=== PATIENT | male | born 1960 | race Caucasian/White ===

== ENCOUNTER → 2018-08-06 | Outpatient (CLI) | payer OTHER ==
[~2018-08-06] MED LIST: AMLODIPINE; LOSARTAN
--- NOTE | 2018-08-06 18:48 | CONS ---
Assessment/Plan Assessment/Plan Hospital Course (Demo Recall) This is a 58-year-old male with severe osteoarthritis of his left hip with mild protrusio. X-rays and MRI show very cystic femoral head. Patient is failing conservative treatment including NSAIDs, activity modification, and pain medication. At this time I am recommending a left total hip arthroplasty. He would like to proceed with scheduling. Plan: Preop medical clearance Schedule for left total hip arthroplasty Follow-up for preop appointment Will need templated AP pelvis and AP lateral left hip Consultation Date/Type/Reason Admit Date/Time Date of Consultation: August 06, 2018 Reason for Consultation Left hip pain Date/Time of Note DATE: 08/06/18 TIME: 18:39 Hx of Present Illness This is a 58-year-old male who presents with a history of left hip pain. Patient states the pain is in the groin, but at times also posterior and radiates down his thigh to his knee. The pain is primarily weight bearing and does not radiate. It is described as sharp, throbbing and burning. The pain is rated as a 6/10 with activity and to/10 at rest. Walking tolerance is 3-4 blocks with pain. No external support. The patient does admit to a limp. Navigates stairs with use of the banister. Has some difficulty with shoes and socks. No history of childhood or adolescent hip disease. No risk factors for avascular necrosis. There are mild symptoms to suggest referred pain from the back with radicular symptoms. Treatment to date has included oral anti-inflammatories, activity modification. The patient states that treatment to date has not provided adequate relief of symptoms, prompting consultation regarding operative and nonoperative treatment for left hip pain. He has also been told he has arthritis in the right hip, but has no pain or symptoms. Duration: One year Injury: No Walking tolerance: 34 blocks with pain Limp: Yes Support: None Stairs: Uses banister Physical Therapy: No Injections: No NSAID's: Yes Prior surgery: No Back pain: Yes Knee pain: No Risk of AVN : no Patient denies fever, chills, shortness of breath, chest pain, nausea/vomiting, constipation, diarrhea, numbness, and tingling. Past Medical History Hypertension BPH Osteoarthritis Melanoma Squamous cell carcinoma Home Meds Reported Medications [Amlodipine] No Conflict Check 01/24/16 [Losartan] No Conflict Check 01/24/16 Allergies: Coded Allergies: No Known Allergy (Unverified , 01/24/16) Past Surgical History Excision of skin cancer Appendectomy Family History Significant Family History: no pertinent family hx Social History Alcohol Use: rarely Smoking Status: Never smoker Drug Use: none Exam/Review of Systems Exam Vitals Weight: 250 pounds Height: 6 foot BMI: 33.9 Temperature: 90.5 Heart Rate: 80 Blood Pressure: 133/78 Respiratory Rate: 12 Exam General: Awake, alert, in no acute distress, pleasant and cooperative Heart: regular rhythm Lungs: breathing comfortably, no tachypnea or dyspnea Musculoskeletal: Well developed male in no apparent distress. Gait demonstrates a mild Trendelenburg with antalgic components and a short leg component. Standing, the pelvis is level and supine there is no significant true leg length discrepancy, with the left leg slightly shorter. There is tenderness over trochanteric bursa or IT band. ----- Range of motion: Flexion: 100 Extension: 0 Internal rotation: 0 External rotation: 30 Abduction: 30 Adduction: Midline ----- Sitting there is no pelvic obliquity. Pain at the extremes of motion of the affected hip. Skin was intact throughout both lower extremities. Sensation intact to light touch in a sural, saphenous, deep peroneal, superficial peroneal, medial and lateral plantar nerve distribution. 4/5 strength for hip abductors. Neurovascular exam showed 5/5 strength in the quads, EHL/tibialis anterior/gastroc. Normal and symmetrical pulses were palpated in both the dorsalis pedis and posterior tibial arteries. There is no sign of venous stasis. Imaging Imaging The patient received a full set of films and personally reviewed by myself today in clinic including an AP pelvis and an AP and lateral of the affected hip. The hip is reduced. Bilateral mild hip protrusio worse in the left and right. There is significant loss of joint space. There is osteophyte formation. There is subchondral sclerosis. There are numerous large subchondral cysts. There is no significant deformity of the the proximal femur, femoral neck, or acetabulum. The pelvis is in continuity. Bone quality radiographically: Good MRI of the left hip was personally reviewed. Moderate severe osteoarthritis of the left femoral acetabular joint with femoral acetabular impingement. There is diffuse subchondral cyst formation. There are areas of full-thickness chondral loss. There is osteophyte formation. CIRO ROCHA MD August 06, 2018 18:48
--- NOTE | 2018-08-07 09:13 | RADRPT ---
PROCEDURE: AP pelvis and bilateral hip series CLINICAL INDICATION: Pain TECHNIQUE: AP pelvic weight bearing and AP and frog lateral weight bearing views of the of the righ t left hips were performed. COMPARISON: None. FINDINGS: Mild to moderate degenerative joint disease of both hips. No evidence of acute fractures or dislocati ons. The bony mineralization is normal. No focal bony blastic or lytic lesions. Soft tissues are unre markable. IMPRESSION: 1. Mild to moderate degenerative joint disease of both hips without acute fractures or dislocations. RPTAT:AAJJ Physician Gilbert Date Time Electronically viewed and signed by Physician Gilbert on 08/07/2018 09:13 BM/
== END | disposition home or self-care (01) ==
LOC: HKI 10:22
PROVIDERS: ATTEND Orthopaedic Surgery Adult Reconstructive Orthopaedic Surgery
DX: Z01.818 Encounter for other preprocedural examination (principal); M16.12 Unilateral primary osteoarthritis, left hip
CPT/HCPCS: 73523; G0463

== ENCOUNTER 2018-09-23 05:38 | Inpatient (IN) | payer OTHER ==
[2018-09-22 13:59] VITALS: BMI 34.2
[2018-09-23] VITALS (42 sets, daily range): BP systolic 71–140; BP diastolic 39–88; PULSE 60–97; RESP 12–28; Ht 182.9 cm; Wt 114.7 kg
[~2018-09-23] VITALS: Ht 182.9 cm; Wt 114.7 kg
[~2018-09-23 05:38] MED LIST changes: -AMLODIPINE; +AMLODIPINE PO; -LOSARTAN; +LOSARTAN PO
[2018-09-23] MEDS ORDERED: LACTATED RINGER'S 1,000 ML IV SCH ×2 (06:00→11:33)
[2018-09-23] MEDS ORDERED: ACETAMINOPHEN 500 MG TAB PO ONE (06:00)
[2018-09-23] MEDS ORDERED: DEXAMETHASONE 4 MG/ML 1 ML INJ IV ONE (06:00)
[2018-09-23] MEDS ORDERED: ONDANSETRON 4 MG INJ IV ONE (06:00)
[2018-09-23] MEDS ORDERED: GABAPENTIN 300 MG CAP PO ONE (06:00)
[2018-09-23] MEDS ORDERED: AMLO-147 PO (06:54)
[2018-09-23] MEDS ORDERED: LOSA100T15 PO (06:55)
[2018-09-23] MEDS ORDERED: CELECOXIB 200 MG CAP PO ONE (07:00)
[2018-09-23] MEDS ORDERED: LANSOPRAZOLE 30 MG CAP PO ONE (07:00)
[2018-09-23] MEDS ORDERED: ACETAMINOPHEN 1000MG/100ML IV 100 ML IVPB ONE ×2 (07:00→10:00)
--- NOTE | 2018-09-23 07:20 | PREAC ---
Date/Time of Note Date/Time of Note DATE: 09/23/18 TIME: 07:18 Anesthesia Eval and Record Evaluation Time Pre-Procedure Interview DATE: 09/23/18 TIME: 07:18 Age 58 Sex male NPO: 8 hrs Preoperative diagnosis left hip osteoarthritis Planned procedure left total hip replacement Past Medical History Past Medical History: Includes Cardio: HTN Endo: Diabetes GI: Obesity Surgery & Anesthesia Issues No known issue Meds Anticoagulation: No Beta Alvina within 24 hr: No Reason Beta Alvina not given: Pt. not on B-Alvina Reported Medications Losartan Potassium* (Losartan Potassium*) 100 Mg Tablet, 100 MG PO DAILY, TAB 09/23/18 Amlodipine Besylate* (Amlodipine Besylate*) 10 Mg Tablet, 10 MG PO DAILY, #30 TAB 09/23/18 Discontinued Reported Medications [Amlodipine] No Conflict Check, 10 MG PO DAILY 01/24/16 [Losartan] 100 No Conflict Check, 100 MG PO DAILY 01/24/16 Current Medications Lactated Ringer's 1,000 ml @ 125 mls/hr Q8H IV Last administered on 09/23/18at 06:44; Admin Dose 125 MLS/HR; Start 09/23/18 at 06:00; Stop 09/23/18 at 13:59 Cefazolin Sodium/ Dextrose 50 ml @ 100 mls/hr PRE-OP ONCE IVPB ; Start 09/23/18 at 10:00; Stop 09/23/18 at 10:29 Ropivacaine/ Clonidine/ Epinephrine/ Ketorolac Tromethamine/ Sodium Chloride INTRA-OP INJ ; Start 09/23/18 at 14:00 Meds reviewed: Yes Allergies Coded Allergies: No Known Allergy (Unverified , 09/23/18) Allergies Reviewed: Yes Labs/Studies Labs Reviewed: Reviewed by anesthesiologist test: N/A Studies: ECG, CXR Pre-procedure Exam Last vitals Vital Signs Date Temp Pulse Resp B/P (MAP) Pulse Ox O2 O2 Flow FiO2 Time Delivery Rate 09/23/18 99.4 89 18 140/88 96 07:03 (105) Airway: Adequate mouth opening, Adequate thyromental dist Mallampati: Mallampati II Teeth: Normal Lung: Normal Heart: Normal ASA Physical Status ASA physical status: 2 Emergency: None Planned Anesthetic General/MAC: ETT Neuraxial: Spinal Planned Pain Management Single shot nerve block, Parenteral pain med Pre-operative Attestations Prior to commencing anesthesia and surgery, the patient was re-evaluated, there was verification of: *The patient's identity *The results of appropriate recent lab work and preoperative vital signs *The above evaluation not changing prior to induction *Anesthetic plan, risk benefits, alternative and complications discussed with patient/family; questions answered; patient/family understands, accepts and wishes to proceed. TEGAN SMITH Sep 23, 2018 07:20
--- NOTE | 2018-09-23 07:23 | HPN ---
Date/Time of Note Date/Time of Note DATE: 09/23/18 TIME: 07:22 Interval H&P Admission Note Pt. seen H&P reviewed: No system changes Patient denies fever, chills, shortness of breath, chest pain, nausea/vomiting, constipation, diarrhea, numbness, and tingling. MUSCULOSKELETAL: Left lower extremity extremity Skin intact Sensation intact to light touch in a sural, saphenous, deep peroneal, superficial peroneal, medial and lateral plantar nerve distribution. Motor is intact, patient able to dorsiflex and plantarflex ankle and extend and flex great toe. Dorsalis Pedis pulse +2, Brisk capillary refill. Compartments are soft. Calves non-tender to palpation bilaterally. CIRO ROCHA MD Sep 23, 2018 07:23
[2018-09-23] MEDS ORDERED: SEVOFLURANE 15 MIN ONE (07:30)
[2018-09-23] MEDS ORDERED: EPINEPHrine 1 MG INJ ONE (07:32)
[2018-09-23] MEDS ORDERED: MIDAZOLAM 1 MG/ML 2 ML INJ ONE (07:34)
[2018-09-23] MEDS ORDERED: FENTAnyl 50 MCG/ML VIAL ONE (07:34)
[2018-09-23] MEDS ORDERED: CEFAZOLIN 1 GM INJ ONE (09:14)
[2018-09-23] MEDS ORDERED: PROPOFOL 20 ML ONE (09:14)
[2018-09-23] MEDS ORDERED: LIDOCAINE 2% (SDV) 5 ML INJ ONE (09:14)
[2018-09-23] MEDS ORDERED: ROCURONIUM 50 MG INJ ONE (09:14)
[2018-09-23] MEDS ORDERED: DEXAMETHASONE 4 MG/ML 5 ML INJ ONE (09:14)
[2018-09-23] MEDS ORDERED: CEFAZOLIN 2 GM/50 ML (PMX) 50 ML IVPB ONE (10:00)
[2018-09-23] MEDS ORDERED: NEOSTIGMINE 3 MG/3 ML SYRINGE ONE (11:07)
[2018-09-23] MEDS ORDERED: GLYCOPYRROLATE 0.4 MG INJ ONE (11:07)
[2018-09-23] MEDS ORDERED: ONDANSETRON 4 MG INJ ONE (11:09)
--- NOTE | 2018-09-23 11:38 | PAC ---
Date/Time of Note Date/Time of Note DATE: 09/23/18 TIME: 11:37 Post-Anesthesia Notes Post-Anesthesia Note Last documented vital signs Vital Signs Date Temp Pulse Resp B/P (MAP) Pulse Ox O2 O2 Flow FiO2 Time Delivery Rate 09/23/18 99.4 89 18 140/88 96 1138 (105) Activity: WNL Respiratory function: WNL Cardiovascular function: WNL Mental status: Baseline Pain reasonably controlled: Yes Hydration appropriate: Yes Nausea/Vomiting absent: Yes TEGAN SMITH Sep 23, 2018 11:38
[2018-09-23] MEDS ORDERED: MIDAZOLAM 1 MG/ML 2 ML INJ IV PRN (12:00)
[2018-09-23] MEDS ORDERED: NALOXONE (0.4 MG/ML) INJ IV PRN (12:00)
[2018-09-23] MEDS ORDERED: ALBUTEROL 0.083% (NEB) 2.5 MG/3 ML AMP HHN PRN (12:00)
[2018-09-23] MEDS ORDERED: KETOROLAC 15 MG INJ IV PRN (12:00)
[2018-09-23] MEDS ORDERED: NACL 0.9% 3 ML SYG IV SCH (12:00)
[2018-09-23] MEDS ORDERED: METOCLOPRAMIDE 10 MG INJ IV PRN (12:00)
[2018-09-23] MEDS ORDERED: SENNA/DOCUSATE NA (8.6MG/50MG) TAB PO PRN (12:00)
[2018-09-23] MEDS ORDERED: NA PHOSPHATE/BIPHOS 133 ML ENEMA PR PRN (12:00)
[2018-09-23] MEDS ORDERED: BISACODYL 10 MG SUPP PR PRN (12:00)
[2018-09-23] MEDS ORDERED: LABETALOL HCL 20MG INJ IV PRN (12:00)
[2018-09-23] MEDS ORDERED: DIPHENHYDRAMINE 50 MG INJ IV PRN ×2 (12:00)
[2018-09-23] MEDS ORDERED: MAGNESIUM HYDROXIDE 30ML CUP PO PRN (12:00)
[2018-09-23] MEDS ORDERED: HYDROmorphONE 1 MG/5 ML IV SYRINGE IV PRN ×2 (12:00)
[2018-09-23] MEDS ORDERED: HYDROmorphONE 1 MG/ML SYG IV PRN (12:00)
[2018-09-23] MEDS ORDERED: oxyCODONE 5 MG TAB PO PRN ×2 (12:00)
[2018-09-23] MEDS ORDERED: FENTAnyl 50 MCG/ML VIAL IV PRN ×3 (12:00)
[2018-09-23] MEDS ORDERED: BETHANECHOL 25 MG TAB PO PRN (12:00)
[2018-09-23] MEDS ORDERED: DOCUSATE SODIUM 100 MG CAP PO ONE (12:00)
[2018-09-23] MEDS ORDERED: KETOROLAC 30 MG INJ IV PRN (12:00)
[2018-09-23] MEDS ORDERED: hydrALAzine 20 MG INJ IV PRN (12:00)
[2018-09-23] MEDS ORDERED: MEPERIDINE 25 MG INJ IV PRN (12:00)
[2018-09-23] MEDS ORDERED: ONDANSETRON 4 MG INJ IV PRN (12:00)
[2018-09-23] MEDS ORDERED: EPHEDrine 25 MG/5 ML SYG IV PRN (12:00)
[2018-09-23] MEDS: CEFAZOLIN 2 GM/50 ML (PMX) 50 ML IVPB SCH ×2 (12:26→21:21)
[2018-09-23] MEDS ORDERED: DEXTROSE 50% 50 ML SYRINGE IV PRN ×2 (12:30)
[2018-09-23] MEDS ORDERED: GLUCOSE GEL 15 GRAM TUBE BUCCAL PRN (12:30)
[2018-09-23] MEDS ORDERED: GLUCAGON 1 MG INJ IM PRN (12:30)
[2018-09-23] MEDS ORDERED: GLUCOSE GEL 15 GRAM TUBE PO PRN ×2 (12:30)
[2018-09-23] MEDS: HYDROmorphONE 1 MG/5 ML IV SYRINGE IV PRN ×2 (12:54→13:02)
[2018-09-23] MEDS: ACETAMINOPHEN 500 MG TAB PO SCH ×2 (13:48→21:20)
--- NOTE | 2018-09-23 14:34 | CONS ---
Assessment/Plan Assessment/Plan Hospital Course (Demo Recall) SUBJECTIVE: POD #0. No acute distress. OBJECTIVE: Vital signs-see below PHYSICAL EXAM: Constitutional: Adequately built,not in acute distress. HEENT: Head atraumatic and normocephalic. Eyes: Extraocular muscles intact. Anicteric sclerae. Pupils equal bilaterally, reactive to light. NECK: Supple without lymph node. CHEST: Clear and good breath sounds equally. No wheezing. No rhonchi. HEART: S1, S2. Regular rate and rhythm. ABDOMEN: Soft/non tender with no rebound tenderness. Bowel sounds were present. EXTREMITIES: Left hip bandaged. No oozing noted outside. No cyanosis, clubbing or edema. NEUROLOGIC: Alert and oriented x3. No focal deficit. No sensory deficit. PSYCHOSOCIAL: No signs of depression. INTEGUMENTARY: No open wounds. ASSESSMENT AND PLAN:58 yo M w/dm2,htn,dlp hip OA admitted s/p L total hip replacement sx.. L Hip osteoarthritis and protrusio -s/p L total hip replacement 09/23 -dvt ppx,pain control, wt bearing per ortho team ? New onset DMII -A1C 7.0 reportedly which we will repeat. -DC LR and give NS postoperatively -basal/bolus insulin HTN -stable,slightly borderline low -monitor and resume antihypertensive in AM w/parameters ?Dyslipidemia -pt was advised to start statin therapy after surgery -obtain a Lipid panel Obesity w/bmi 34.3 -weight reduction advised -add am lipid panel dvt ppx;asa bid (per ortho) Thank you for allowing us to partake in the care of this gentleman. Approximately 60 m spent on this consultation. Patient was seen in collaboration with Dr. Mehta. Consultation Date/Type/Reason Admit Date/Time Sep 23, 2018 at 05:38 Date of Consultation: Sep 23, 2018 Type of Consult Internal medicine/hospitalist medicine Reason for Consultation co-medical mgmt Requesting Provider: CIRO ROCHA MD Date/Time of Note DATE: 09/23/18 TIME: 14:28 Hx of Present Illness This is a 58-year-old obese male with a history of hypertension, type 2 diabetes, left hip osteoarthritis with protrusio, admitted for elective left total hip replacement. Patient underwent left total hip replacement surgery on 09/23/2018. EBL 300ML. Hospitalist consultation was requested postoperatively for co-medical management. At my encounter with the patient, he denies any chest pain, palpitation, shortness of breath, nausea, vomiting, abdominal pain, loss of consciousness, dizziness, numbness, tingling, fever, chills or other constitutional symptoms. Currently no labs for review. Vital signs stable. Latest POC glucose 699. A 12 point review of system was assessed and is negative other than what is mentioned in the HPI. Past Medical History See HPI Home Meds Reported Medications Losartan Potassium* (Losartan Potassium*) 100 Mg Tablet, 100 MG PO DAILY, TAB 09/23/18 Amlodipine Besylate* (Amlodipine Besylate*) 10 Mg Tablet, 10 MG PO DAILY, #30 TAB 09/23/18 Discontinued Reported Medications [Amlodipine] No Conflict Check, 10 MG PO DAILY 01/24/16 [Losartan] 100 No Conflict Check, 100 MG PO DAILY 01/24/16 Medications Current Medications Lactated Ringer's 1,000 ml @ 80 mls/hr [id number] IV Last administered on 09/23/18at 12:26; Admin Dose 80 MLS/HR; Start 09/23/18 at 11:33 Oxycodone HCl (Roxicodone) 15 mg Q4H PRN PO .PAIN; Start 09/23/18 at 12:00 Oxycodone HCl (Roxicodone) 10 mg Q4H PRN PO .PAIN; Start 09/23/18 at 12:00 Oxycodone HCl (Roxicodone) 5 mg Q4H PRN PO .PAIN; Start 09/23/18 at 12:00 Hydromorphone HCl (Dilaudid) 1 mg Q3H PRN IV .BREAKTHROUGH PAIN; Start 09/23/18 at 12:00 Acetaminophen (Tylenol Tab) 1,000 mg Q8 PO Last administered on 09/23/18at 13:48; Admin Dose 1,000 MG; Start 09/23/18 at 14:00 Ondansetron HCl (Zofran Inj) 4 mg Q4H PRN IV NAUSEA/VOMITING; Start 09/24/18 at 12:00 Cefazolin Sodium/ Dextrose 50 ml @ 100 mls/hr Q8H IVPB Last administered on 09/23/18at 12:26; Admin Dose 100 MLS/HR; Start 09/23/18 at 12:00; Stop 09/24/18 at 04:29 Gabapentin (Neurontin) 300 mg QHS PO ; Start 09/23/18 at 21:00 Pantoprazole (Protonix Tab) 40 mg DAILY@06 PO ; Start 09/24/18 at 06:00 Docusate Sodium (Colace) 200 mg BID PO ; Start 09/24/18 at 09:00; Stop 09/26/18 at 21:01 Simethicone (Mylicon) 80 mg TID PRN PO .GAS; Start 09/23/18 at 12:00 Senna/Docusate Sodium (Senokot-S) 2 tab BID PRN PO .CONSTIPATION; Start 09/23/18 at 12:00 Magnesium Hydroxide (Milk Of Mag) 30 ml HS PRN PO .CONSTIPATION; Start 09/23/18 at 12:00 Bisacodyl (Dulcolax Supp) 10 mg DAILY PRN SD .CONSTIPATION; Start 09/23/18 at 12:00 Sodium Biphosphate/ Sodium Phosphate (Fleet Enema) 133 ml DAILY PRN SD .CONSTIPATION; Start 09/23/18 at 12:00 Diphenhydramine HCl (Benadryl) 25 mg Q4H PRN IV .ITCHING; Start 09/23/18 at 12:00 Ketorolac Tromethamine (Toradol) 15 mg Q6H PRN IV .PAIN Last administered on 09/23/18at 13:49; Admin Dose 15 MG; Start 09/23/18 at 12:00 Naloxone HCl (Narcan) 0.2 mg Q2M PRN IV .RESP RATE; Start 09/23/18 at 12:00 IV Flush (NS 3 ml) 3 ml per protocol IV ; Start 09/23/18 at 12:00 Bethanechol Chloride (Urecholine) 25 mg URINARY CATH D/C PRN PO UNABLE TO VOID; Start 09/23/18 at 12:00 Aspirin (Halfprin) 81 mg BID PO ; Start 09/24/18 at 09:00 Hydromorphone HCl (Dilaudid) 0.2 mg PACU PRN IV MILD PAIN 1-3 Last administered on 09/23/18at 13:07; Admin Dose 0.2 MG; Start 09/23/18 at 12:00; Stop 09/23/18 at 18:00 Hydromorphone HCl (Dilaudid) 0.4 mg PACU PRN IV MOD PAIN 4-6 Last administered on 09/23/18at 13:02; Admin Dose 0.4 MG; Start 09/23/18 at 12:00; Stop 09/23/18 at 18:00 Hydromorphone HCl (Dilaudid) 0.6 mg PACU PRN IV SEVERE PAIN 7-10; Start 09/23/18 at 12:00; Stop 09/23/18 at 18:00 Fentanyl (Sublimaze) 25 mcg PACU ORDER PRN IV MILD PAIN 1-3; Start 09/23/18 at 12:00; Stop 09/23/18 at 18:00 Fentanyl (Sublimaze) 50 mcg PACU ORDER PRN IV MOD PAIN 4-6; Start 09/23/18 at 12:00; Stop 09/23/18 at 18:00 Fentanyl (Sublimaze) 75 mcg PACU ORDER PRN IV SEVERE PAIN 7-10; Start 09/23/18 at 12:00 Ketorolac Tromethamine (Toradol) 30 mg PACU ORDER PRN IV FOR PAIN AFTER IV NARCOTIC MED; Start 09/23/18 at 12:00; Stop 09/23/18 at 18:00 Ondansetron HCl (Zofran Inj) 4 mg PACU ORDER PRN IV NAUSEA/VOMITING; Start 09/23/18 at 12:00; Stop 09/23/18 at 18:00 Metoclopramide HCl (Reglan) 10 mg PACU ORDER PRN IV NAUSEA/VOMITING; Start 09/23/18 at 12:00; Stop 09/23/18 at 18:00 Labetalol HCl (Labetalol) 5 mg PACU ORDER PRN IV HIGH BLOOD PRESSURE; Start 09/23/18 at 12:00; Stop 09/23/18 at 18:00 Hydralazine HCl (Apresoline) 5 mg PACU ORDER PRN IV HIGH BLOOD PRESSURE; Start 09/23/18 at 12:00; Stop 09/23/18 at 18:00 Ephedrine Sulfate 5 mg PACU ORDER PRN IV BLOOD PRESSURE SUPPORT; Start 09/23/18 at 12:00; Stop 09/23/18 at 18:00 Albuterol (Proventil 0.083% (Neb)) 2.5 mg PACU ORDER PRN HHN .WHEEZING; Start 09/23/18 at 12:00; Stop 09/23/18 at 18:00 Meperidine HCl (Demerol) 25 mg PACU ORDER PRN IV .RIGORS; Start 09/23/18 at 12:00; Stop 09/23/18 at 18:00 Diphenhydramine HCl (Benadryl) 25 mg PACU ORDER PRN IV .PRURITUS; Start 09/23/18 at 12:00; Stop 09/23/18 at 18:00 Midazolam HCl (Versed) 0.5 mg PACU ORDER PRN IV .ANXIETY; Start 09/23/18 at 12:00; Stop 09/23/18 at 18:00 Amlodipine Besylate (Norvasc) 10 mg DAILY PO ; Start 09/24/18 at 09:00 Losartan Potassium (Cozaar) 100 mg DAILY PO ; Start 09/24/18 at 09:00 Diagnostic Test (Pha) (Accu-Chek) 1 ea 02 XX ; Start 09/24/18 at 02:00 Insulin Glargine (Lantus) 17 units DAILY@2000 SC ; Start 09/23/18 at 20:00 Insulin Aspart (Novolog Insulin Pen) 6 unit WITH MEALS SC ; Start 09/23/18 at 17:55 Insulin Aspart (Novolog Insulin Pen) NOVOLOG *MILD* ALGORITHM WITH MEALS BEDTIME SC ; Start 09/23/18 at 17:55 Miscellaneous Information 1 ea NOTE XX ; Start 09/23/18 at 12:30 Glucose (Glutose) 15 gm Q15M PRN PO DECREASED GLUCOSE; Start 09/23/18 at 12:30 Glucose (Glutose) 22.5 gm Q15M PRN PO DECREASED GLUCOSE; Start 09/23/18 at 12:30 Dextrose (D50w Syringe) 25 ml Q15M PRN IV DECREASED GLUCOSE; Start 09/23/18 at 12:30 Dextrose (D50w Syringe) 50 ml Q15M PRN IV DECREASED GLUCOSE; Start 09/23/18 at 12:30 Glucagon (Glucagen) 1 mg Q15M PRN IM DECREASED GLUCOSE; Start 09/23/18 at 12:30 Glucose (Glutose) 15 gm Q15M PRN BUCCAL DECREASED GLUCOSE; Start 09/23/18 at 12:30 Allergies: Coded Allergies: No Known Allergy (Unverified , 09/23/18) Past Surgical History See HPI Social History Patient denied history of alcohol, smoking or illicit drug use. Smoking Status: Never smoker Exam/Review of Systems Exam Vitals Vital Signs Date Temp Pulse Resp B/P (MAP) Pulse Ox O2 O2 Flow FiO2 Time Delivery Rate 09/23/18 98.0 13:30 09/23/18 84 17 104/70 95 Nasal 13:19 (81) Cannula 09/23/18 2.0 12:39 Results Results 24hrs Laboratory Tests Test 09/23/18 06:21 09/23/18 11:51 Bedside Glucose 134 199 Medications Medication Current Medications Lactated Ringer's 1,000 ml @ 80 mls/hr [id number] IV Last administered on 09/23/18at 12:26; Admin Dose 80 MLS/HR; Start 09/23/18 at 11:33 Oxycodone HCl (Roxicodone) 15 mg Q4H PRN PO .PAIN; Start 09/23/18 at 12:00 Oxycodone HCl (Roxicodone) 10 mg Q4H PRN PO .PAIN; Start 09/23/18 at 12:00 Oxycodone HCl (Roxicodone) 5 mg Q4H PRN PO .PAIN; Start 09/23/18 at 12:00 Hydromorphone HCl (Dilaudid) 1 mg Q3H PRN IV .BREAKTHROUGH PAIN; Start 09/23/18 at 12:00 Acetaminophen (Tylenol Tab) 1,000 mg Q8 PO Last administered on 09/23/18at 13:48; Admin Dose 1,000 MG; Start 09/23/18 at 14:00 Ondansetron HCl (Zofran Inj) 4 mg Q4H PRN IV NAUSEA/VOMITING; Start 09/24/18 at 12:00 Cefazolin Sodium/ Dextrose 50 ml @ 100 mls/hr Q8H IVPB Last administered on 09/23/18at 12:26; Admin Dose 100 MLS/HR; Start 09/23/18 at 12:00; Stop 09/24/18 at 04:29 Gabapentin (Neurontin) 300 mg QHS PO ; Start 09/23/18 at 21:00 Pantoprazole (Protonix Tab) 40 mg DAILY@06 PO ; Start 09/24/18 at 06:00 Docusate Sodium (Colace) 200 mg BID PO ; Start 09/24/18 at 09:00; Stop 09/26/18 at 21:01 Simethicone (Mylicon) 80 mg TID PRN PO .GAS; Start 09/23/18 at 12:00 Senna/Docusate Sodium (Senokot-S) 2 tab BID PRN PO .CONSTIPATION; Start 09/23/18 at 12:00 Magnesium Hydroxide (Milk Of Mag) 30 ml HS PRN PO .CONSTIPATION; Start 09/23/18 at 12:00 Bisacodyl (Dulcolax Supp) 10 mg DAILY PRN SD .CONSTIPATION; Start 09/23/18 at 12:00 Sodium Biphosphate/ Sodium Phosphate (Fleet Enema) 133 ml DAILY PRN SD .CONSTIPATION; Start 09/23/18 at 12:00 Diphenhydramine HCl (Benadryl) 25 mg Q4H PRN IV .ITCHING; Start 09/23/18 at 12:00 Ketorolac Tromethamine (Toradol) 15 mg Q6H PRN IV .PAIN Last administered on 09/23/18at 13:49; Admin Dose 15 MG; Start 09/23/18 at 12:00 Naloxone HCl (Narcan) 0.2 mg Q2M PRN IV .RESP RATE; Start 09/23/18 at 12:00 IV Flush (NS 3 ml) 3 ml per protocol IV ; Start 09/23/18 at 12:00 Bethanechol Chloride (Urecholine) 25 mg URINARY CATH D/C PRN PO UNABLE TO VOID; Start 09/23/18 at 12:00 Aspirin (Halfprin) 81 mg BID PO ; Start 09/24/18 at 09:00 Hydromorphone HCl (Dilaudid) 0.2 mg PACU PRN IV MILD PAIN 1-3 Last administered on 09/23/18at 13:07; Admin Dose 0.2 MG; Start 09/23/18 at 12:00; Stop 09/23/18 at 18:00 Hydromorphone HCl (Dilaudid) 0.4 mg PACU PRN IV MOD PAIN 4-6 Last administered on 09/23/18at 13:02; Admin Dose 0.4 MG; Start 09/23/18 at 12:00; Stop 09/23/18 at 18 :00 Hydromorphone HCl (Dilaudid) 0.6 mg PACU PRN IV SEVERE PAIN 7-10; Start 09/23/18 at 12:00; Stop 09/23/18 at 18:00 Fentanyl (Sublimaze) 25 mcg PACU ORDER PRN IV MILD PAIN 1-3; Start 09/23/18 at 12:00; Stop 09/23/18 at 18:00 Fentanyl (Sublimaze) 50 mcg PACU ORDER PRN IV MOD PAIN 4-6; Start 09/23/18 at 12:00; Stop 09/23/18 at 18:00 Fentanyl (Sublimaze) 75 mcg PACU ORDER PRN IV SEVERE PAIN 7-10; Start 09/23/18 at 12:00 Ketorolac Tromethamine (Toradol) 30 mg PACU ORDER PRN IV FOR PAIN AFTER IV NARCOTIC MED; Start 09/23/18 at 12:00; Stop 09/23/18 at 18:00 Ondansetron HCl (Zofran Inj) 4 mg PACU ORDER PRN IV NAUSEA/VOMITING; Start 09/23/18 at 12:00; Stop 09/23/18 at 18:00 Metoclopramide HCl (Reglan) 10 mg PACU ORDER PRN IV NAUSEA/VOMITING; Start 09/23/18 at 12:00; Stop 09/23/18 at 18:00 Labetalol HCl (Labetalol) 5 mg PACU ORDER PRN IV HIGH BLOOD PRESSURE; Start 09/23/18 at 12:00; Stop 09/23/18 at 18:00 Hydralazine HCl (Apresoline) 5 mg PACU ORDER PRN IV HIGH BLOOD PRESSURE; Start 09/23/18 at 12:00; Stop 09/23/18 at 18:00 Ephedrine Sulfate 5 mg PACU ORDER PRN IV BLOOD PRESSURE SUPPORT; Start 09/23/18 at 12:00; Stop 09/23/18 at 18:00 Albuterol (Proventil 0.083% (Neb)) 2.5 mg PACU ORDER PRN HHN .WHEEZING; Start 09/23/18 at 12:00; Stop 09/23/18 at 18:00 Meperidine HCl (Demerol) 25 mg PACU ORDER PRN IV .RIGORS; Start 09/23/18 at 12:00; Stop 09/23/18 at 18:00 Diphenhydramine HCl (Benadryl) 25 mg PACU ORDER PRN IV .PRURITUS; Start 09/23/18 at 12:00; Stop 09/23/18 at 18:00 Midazolam HCl (Versed) 0.5 mg PACU ORDER PRN IV .ANXIETY; Start 09/23/18 at 12:00; Stop 09/23/18 at 18:00 Amlodipine Besylate (Norvasc) 10 mg DAILY PO ; Start 09/24/18 at 09:00 Losartan Potassium (Cozaar) 100 mg DAILY PO ; Start 09/24/18 at 09:00 Diagnostic Test (Pha) (Accu-Chek) 1 ea 02 XX ; Start 09/24/18 at 02:00 Insulin Glargine (Lantus) 17 units DAILY@2000 SC ; Start 09/23/18 at 20:00 Insulin Aspart (Novolog Insulin Pen) 6 unit WITH MEALS SC ; Start 09/23/18 at 17:55 Insulin Aspart (Novolog Insulin Pen) NOVOLOG *MILD* ALGORITHM WITH MEALS BEDTIME SC ; Start 09/23/18 at 17:55 Miscellaneous Information 1 ea NOTE XX ; Start 09/23/18 at 12:30 Glucose (Glutose) 15 gm Q15M PRN PO DECREASED GLUCOSE; Start 09/23/18 at 12:30 Glucose (Glutose) 22.5 gm Q15M PRN PO DECREASED GLUCOSE; Start 09/23/18 at 12:30 Dextrose (D50w Syringe) 25 ml Q15M PRN IV DECREASED GLUCOSE; Start 09/23/18 at 12:30 Dextrose (D50w Syringe) 50 ml Q15M PRN IV DECREASED GLUCOSE; Start 09/23/18 at 12:30 Glucagon (Glucagen) 1 mg Q15M PRN IM DECREASED GLUCOSE; Start 09/23/18 at 12:30 Glucose (Glutose) 15 gm Q15M PRN BUCCAL DECREASED GLUCOSE; Start 09/23/18 at 12:30 PHAN DIGGS NP Sep 23, 2018 14:34
[2018-09-23] MEDS ORDERED: SOD CHLORIDE 0.9% 500 ML IV SCH (15:00)
[2018-09-23] MEDS: oxyCODONE 5 MG TAB PO PRN ×2 (15:08→19:13)
[2018-09-23] MEDS: SOD CHLORIDE 0.9% 1,000 ML IV SCH ×2 (15:14→20:23)
[2018-09-23] MEDS ORDERED: INSULIN ASPART [NOVOLOG] 3 ML PEN SC SCH ×2 (17:55)
[2018-09-23] MEDS: INSULIN ASPART [NOVOLOG] 3 ML PEN SC SCH ×2 (17:59→20:33)
[2018-09-23] MEDS ORDERED: INSULIN GLARGINE [LANTus] (100 UNITS/ML) SYG SC SCH (20:00)
[2018-09-23] MEDS ORDERED: GABAPENTIN 300 MG CAP PO SCH (21:00)
--- NOTE | 2018-09-23 21:31 | OPR ---
Date/Time of Note Date/Time of Note DATE: 09/23/18 TIME: 21:25 Operative Report Procedure Date: Sep 23, 2018 Preoperative Diagnosis Left hip osteoarthritis Hip protrusio Postoperative Diagnosis As above Operation/Procedure Performed Left total hip arthroplasty Intraoperative use of x-ray Surgeon see signature line Psych Arnp Lucy Arreguin Anesthesia Type: general, spinal Estimated Blood Loss: 200 - 250 ml's Transfusion none Specimen Femoral head Grafts/Implants Implant: [employer]: Gription-pinnacle acetabulum size 56 mm Polyethylene Size +4 neutral 36 mm inner diameter Femoral stem: [place] press-fit size 7, stage II offset Femoral head: 36 +1.5 mm ceramic. Complications none Pt Condition Post Procedure: stable Disposition: PACU Procedure Description PREOP DIAGNOSIS: Left hip osteoarthritis and protrusio. POSTOP DIAGNOSIS: Same. SURGICAL PROCEDURE: Left total hip arthroplasty (CPT code 90764). Intraoperative use of x-ray INDICATIONS: The patient is a 58 year-old man with an orthopaedic history significant for progressively worsening left hip pain. The patient failed conservative management and wished to pursue surgical options. On physical exam, they walk with a moderate antalgic gait. No previous open surgical scars. Guarded range of motion but no contractures. Neurovascularly intact. Radiographs reveal advanced osteoarthritis with DJD INFORMED CONSENT: The operative procedure was explained using diagrams and/or three-dimensional models. The rehabilitation, the potential risks, benefits and alternatives were discussed at length. Specific risks discussed included but were not limited to excessive blood loss and the need for transfusion and therefore the risk of transmissible disease or transfusion reaction, deep infection and the potential need for repetitive debridements, implant removal, long-term antibiotic therapy, possibly requiring deep venous access, leg-length discrepancy, dislocation, possibly recurrent, with the need for closed versus open reduction, bracing, femoral or acetabular fracture and the need for further surgery for fixation, neurovascular injury with temporary or permanent numbness, tingling, weakness or paralysis, deep venous thrombosis, pulmonary embolism and , persistent pain, weakness, or limp, late aseptic loosening and the need for revision, polyethylene wear-induced osteolysis and related problems, and finally, a wide variety of unanticipated medical problems. The opportunity to ask questions and address any concerns was provided. The patient wished to proceed. FINDINGS: Severe degenerative joint disease of the femoral head and acetabulum. Mild to moderate protrusio. Large cysts and femoral head SURGERY IN DETAIL: The patient was taken into the Operating Room and placed supine on the operating table. Preoperatively, they were administered Ancef. They were administered general and spinal anesthesia by the Anesthesia Department. Dexamethasone 10mg IV was administered. The patient was placed on an [facility] Lateral Positioner in a right lateral decubitus position with the left hip superior. An axillary roll was placed, all pressure points were confirmed padded. The left hip region was prepped and draped in sterile fashion. A surgical pause was performed, correctly identifying the patient's name, the correct medical record number, the correct diagnosis, correct surgical procedure, and the correct extremity. 1g of tranexamic acid was dosed at the time of incision A posterolateral skin incision, approximately 15-20 cm in length was made, centered over the greater trochanter, skin and subcutaneous tissue sharply dissected. Deep fascial layer was identified and incised in line with the skin incision. Gluteus medius was retracted anteriorly. Piriformis tendon was identified, tagged with a stitch, and incised close to its insertion. The interval between the gluteus minimus and hip capsule was developed superiorly, and a superior retractor was placed. Short external rotators were subperiosteally incised from the posterior proximal femur to the level of the lesser trochanter and an inferior retractor was placed. A posterior capsulotomy was performed. Two tag stitches were placed in the capsule. The hip was dislocated. A femoral neck osteotomy was performed at the preoperatively templated level. A radial incision was made in the inferior capsule to the level of transverse acetabular ligament, which was identified, and an inferior retractor was placed inferior to the transverse acetabular ligament or inferior to the cotyloid notch. An anterior retractor was placed at the rim of the acetabulum. The acetabular labrum was then sharply excised. There was a large pulvinar in the base of the acetabulum, which was removed with electrocautery. The acetabulum was then sequentially reamed, beginning at 45 mm, up to a size 55mm outer diameter reamer. The acetabulum was protrusio. There was good rim fit and fairly good contact in the base of the acetabulum. Viable bone from the femoral head was harvested and the packed into the acetabulum secondary to the protrusio. A size 56 mm Gription-[place] cup was inserted. 2 dome screws was placed with very good purchase, and a +4 neutral polyethylene trial was inserted and attention was placed to preparing the femur. Soft tissues were removed from the junction of the greater trochanter and the femoral neck osteotomy. A box osteotome was used lateralize the starting point. A starting awl was utilized, followed by a lateralizing reamer, followed by axial reamers for the [place] system up to a size 7. The femoral canal was then broached up to a size 7. A neutral femoral head was inserted and the hip was reduced. Range of motion and stability were quite good, including forward flexion to greater than 90 degrees, internal rotation greater than 80 degrees at 90 degrees flexion, internal rotation greater than 80 degrees with the hip adducted and at 45 degrees of flexion. External Rotation was also tested, and was stable with no impingement or instability at full extension and 30 degrees external rotation. Ranawat sign was 55 degrees. Intraoperative x-ray revealed the hip to have satisfactory position of all components. The hip was dislocated in controlled manner using a bone hook and the trial components removed. Local anesthetic was injected periarticular. A formal +4 mm neutral with 36 mm inner diameter polyethylene was inserted into the cup, confirmed seated and locked. On the femoral side, a [place] size 7 standard stem was inserted. A 36 +1.5 mm ceramic head was inserted onto the taper. The hip was reduced. One final time range of motion, stability, and soft tissue tension were satisfactory. The wound was thoroughly irrigated. 1g of tranexamic acid was dosed. The previously tagged arthrotomy, as well as the piriformis tendon was reattached to the gluteus medius at the level the greater trochanter. The deep fascial layer was closed with 1 Vicryl in a [id number], interrupted fashion, deep subcutaneous tissues irrigated and closed with 0 Vicryl interrupted fashion, subcutaneous tissues irrigated, closed with 2-0 Vicryl in an inverted, interrupted fashion. The skin was closed with avani. A sterile dressing was applied, abduction pillow was placed between the legs, an d the patient was transferred to a supine position. Postoperative clinical leg lengths, rotation of limb were neutral and symmetric. All Counts were correct x2 DISPOSITION: Patient transferred to PACU in stable condition. The patient will be weight be aring as tolerated on the operative extremity. PT will begin POD#0 if available. Posterior hip precautions for 3 months with an abduction pillow. Postoperative AP pelvis will be ordered in PACU. Bilateral knee high SCDs will be worn while admitted. ASA 81mg BID will be given for DVT prophylaxis for 6 weeks. Pain will be controlled with medication. The patient will follow up in clinic in approximately 2 weeks. Implant: DePuy: Gription-pinnacle acetabulum size 56 mm Polyethylene Size +4 neutral 36 mm inner diameter Femoral stem: [place] press-fit size 7, stage II offset Femoral head: 36 +1.5 mm ceramic. CIRO ROCHA MD Sep 23, 2018 21:31
[2018-09-24 00:37] VITALS: BP 96/55; PULSE 86; RESP 18
[2018-09-24] MEDS ORDERED: ACCU-CHEK XX SCH (02:00)
[2018-09-24] MEDS: SOD CHLORIDE 0.9% 1,000 ML IV SCH ×2 (03:44→16:14)
[2018-09-24] MEDS: CEFAZOLIN 2 GM/50 ML (PMX) 50 ML IVPB SCH (03:47)
[2018-09-24 05:10] VITALS: BP 110/58; PULSE 75; RESP 18
[2018-09-24] MEDS ORDERED: PANTOPRAZOLE (EC) 40 MG TAB PO SCH (06:00)
[2018-09-24] MEDS: ACETAMINOPHEN 500 MG TAB PO SCH ×2 (06:20→14:21)
[2018-09-24 07:46] VITALS: BP 110/58; PULSE 78; RESP 18
[2018-09-24] MEDS ORDERED: LOSARTAN 50 MG TAB PO SCH (09:00)
[2018-09-24] MEDS ORDERED: AMLODIPINE 10 MG TAB PO SCH (09:00)
[2018-09-24] MEDS ORDERED: ASPIRIN (EC) 81 MG TAB PO SCH (09:00)
[2018-09-24] MEDS ORDERED: DOCUSATE SODIUM 100 MG CAP PO SCH (09:00)
[2018-09-24] MEDS: INSULIN ASPART [NOVOLOG] 3 ML PEN SC SCH ×5 (10:32→17:55)
[2018-09-24] MEDS ORDERED: ONDANSETRON 4 MG INJ IV PRN (12:00)
--- NOTE | 2018-09-24 14:43 | CONS ---
Assessment/Plan Assessment/Plan Hospital Course (Demo Recall) SUBJECTIVE: POD #1. had been up w/PT.sugars controlled. OBJECTIVE: Vital signs-see below PHYSICAL EXAM: Constitutional: Adequately built,not in acute distress. HEENT: Head atraumatic and normocephalic. Eyes: Extraocular muscles intact. Anicteric sclerae. Pupils equal bilaterally, reactive to light. NECK: Supple without lymph node. CHEST: Clear and good breath sounds equally. No wheezing. No rhonchi. HEART: S1, S2. Regular rate and rhythm. ABDOMEN: Soft/non tender with no rebound tenderness. Bowel sounds were present. EXTREMITIES: Left hip bandaged. No oozing noted outside. No cyanosis, clubbing or edema. NEUROLOGIC: Alert and oriented x3. No focal deficit. No sensory deficit. PSYCHOSOCIAL: No signs of depression. INTEGUMENTARY: No open wounds. ASSESSMENT AND PLAN:58 yo M w/dm2,htn,dlp hip OA admitted s/p L total hip replacement sx.. L Hip osteoarthritis and protrusio -s/p L total hip replacement 09/23 -dvt ppx,pain control, wt bearing per ortho team New onset DMII in obese -A1C 7.0 (done outside)-repeat 6.3 w/fbs 170 -sugars trending down - deescalate bolus to 4 to prevent drastic drops. -cont.basal -metformin 500mg daily on dc w/repeat labs in 4wks -diet changes, dm education HTN -BP stable without meds. -DC ccb and decrease losartan down to 50 daily. Obesity w/bmi 34.3 -weight reduction advised -Lipids stable. dvt ppx;asa bid (per ortho) dispo:per ortho. Patient was seen in collaboration with Dr. Mehta. Consultation Date/Type/Reason Admit Date/Time Sep 23, 2018 at 05:38 Initial Consult Date 09/23/18 Type of Consult Internal medicine/hospitalist medicine Requesting Provider: CIRO ROCHA MD Date/Time of Note DATE: 09/24/18 TIME: 14:38 Exam/Review of Systems Exam Vitals Vital Signs Date Temp Pulse Resp B/P (MAP) Pulse Ox O2 O2 Flow FiO2 Time Delivery Rate 09/24/18 98.0 78 18 110/58 97 Nasal 07:46 (75) Cannula 09/23/18 2.0 20:25 Intake and Output 09/23/18 09/23/18 09/24/18 1515:00 23:00 07:00 IntakeIntake Total 2700 ml 2600.0 ml 1390 ml OutputOutput Total 550 ml 1200 ml 2300 ml BalanceBalance 2150 ml 1400.0 ml -910 ml Results Result Diagram: 09/24/18 0442 09/24/18 0443 Results 24hrs Laboratory Tests Test 09/23/18 17:51 09/23/18 20:26 09/24/18 02:28 09/24/18 04:00 Bedside Glucose 216 211 175 Urine Color STRAW Urine Clarity CLEAR Urine pH 6.0 Urine Specific 1.013 [place] Urine Ketones NEGATIVE Urine Nitrite NEGATIVE Urine Bilirubin NEGATIVE Urine Urobilinogen NEGATIVE Urine Leukocyte NEGATIVE Esterase Urine Microscopic 0 RBC Urine Microscopic 1 WBC Urine Bacteria FEW A Urine Hemoglobin 1+ H Urine Glucose NEGATIVE Urine Total NEGATIVE Protein Test 09/24/18 04:42 09/24/18 04:43 09/24/18 07:15 09/24/18 08:23 White Blood Count 15.2 H Red Blood Count 3.47 L Hemoglobin 9.7 L Hematocrit 29.8 L Mean Corpuscular 85.9 Volume Mean Corpuscular 28.0 L Hemoglobin Mean Corpuscular 32.6 Hemoglobin Concent Red Cell 13.4 Distribution Width Platelet Count 210 Mean Platelet 9.4 Volume Immature 0.700 H Granulocytes % Neutrophils % 84.8 H Lymphocytes % 6.0 L Monocytes % 8.4 Eosinophils % 0.0 Basophils % 0.1 Nucleated Red 0.0 Blood Cells % Immature 0.100 H Granulocytes # Neutrophils # 12.9 H Lymphocytes # 0.9 Monocytes # 1.3 H Eosinophils # 0.0 Basophils # 0.0 Nucleated Red 0.0 Blood Cells # Prothrombin Time 14.1 Prothrombin Time 1.1 Ratio INR International 1.08 Normalized Ratio Hemoglobin A1c 6.3 H Triglycerides 85 Level Cholesterol Level 147 LDL Cholesterol, 99 Calculated HDL Cholesterol 31 Cholesterol/HDL 4.7 Ratio Sodium Level 140 Potassium Level 4.7 Chloride Level 106 Carbon Dioxide 27 Level Anion Gap 7 Blood Urea 13 Nitrogen Creatinine 0.99 Est Glomerular > 60 Filtrat Rate mL/min Glucose Level 170 Calcium Level 8.9 Lab Scanned Report REFERENCE LAB Bedside Glucose 175 Test 09/24/18 12:41 Bedside Glucose 135 Medications Medication Current Medications Oxycodone HCl (Roxicodone) 15 mg Q4H PRN PO .PAIN; Start 09/23/18 at 12:00 Oxycodone HCl (Roxicodone) 10 mg Q4H PRN PO .PAIN Last administered on 09/23/18at 19:13; Admin Dose 10 MG; Start 09/23/18 at 12:00 Oxycodone HCl (Roxicodone) 5 mg Q4H PRN PO .PAIN; Start 09/23/18 at 12:00 Hydromorphone HCl (Dilaudid) 1 mg Q3H PRN IV .BREAKTHROUGH PAIN; Start 09/23/18 at 12:00 Acetaminophen (Tylenol Tab) 1,000 mg Q8 PO Last administered on 09/24/18at 14:21; Admin Dose 1,000 MG; Start 09/23/18 at 14:00 Ondansetron HCl (Zofran Inj) 4 mg Q4H PRN IV NAUSEA/VOMITING; Start 09/24/18 at 12:00 Gabapentin (Neurontin) 300 mg QHS PO Last administered on 09/23/18at 20:21; Admin Dose 300 MG; Start 09/23/18 at 21:00 Pantoprazole (Protonix Tab) 40 mg DAILY@06 PO Last administered on 09/24/18at 06:20; Admin Dose 40 MG; Start 09/24/18 at 06:00 Docusate Sodium (Colace) 200 mg BID PO Last administered on 09/24/18at 09:13; Admin Dose 200 MG; Start 09/24/18 at 09:00; Stop 09/26/18 at 21:01 Simethicone (Mylicon) 80 mg TID PRN PO .GAS; Start 09/23/18 at 12:00 Senna/Docusate Sodium (Senokot-S) 2 tab BID PRN PO .CONSTIPATION; Start 09/23/18 at 12:00 Magnesium Hydroxide (Milk Of Mag) 30 ml HS PRN PO .CONSTIPATION; Start 09/23/18 at 12:00 Bisacodyl (Dulcolax Supp) 10 mg DAILY PRN [place] .CONSTIPATION; Start 09/23/18 at 12:00 Sodium Biphosphate/ Sodium Phosphate (Fleet Enema) 133 ml DAILY PRN [place] .CONSTIPATION; Start 09/23/18 at 12:00 Diphenhydramine HCl (Benadryl) 25 mg Q4H PRN IV .ITCHING; Start 09/23/18 at 12:00 Ketorolac Tromethamine (Toradol) 15 mg Q6H PRN IV .PAIN Last administered on 09/23/18at 13:49; Admin Dose 15 MG; Start 09/23/18 at 12:00 Naloxone HCl (Narcan) 0.2 mg Q2M PRN IV .RESP RATE; Start 09/23/18 at 12:00 IV Flush (NS 3 ml) 3 ml per protocol IV ; Start 09/23/18 at 12:00 Bethanechol Chloride (Urecholine) 25 mg URINARY CATH D/C PRN PO UNABLE TO VOID Last administered on 09/24/18at 06:21; Admin Dose 25 MG; Start 09/23/18 at 12:00 Aspirin (Halfprin) 81 mg BID PO Last administered on 09/24/18at 09:13; Admin Dos e 81 MG; Start 09/24/18 at 09:00 Fentanyl (Sublimaze) 75 mcg PACU ORDER PRN IV SEVERE PAIN 7-10; Start 09/23/18 at 12:00 Amlodipine Besylate (Norvasc) 10 mg DAILY PO Last administered on 09/24/18at 09: 19; Admin Dose 10 MG; Start 09/24/18 at 09:00 Losartan Potassium (Cozaar) 100 mg DAILY PO Last administered on 09/24/18at 09:18; Admin Dose 100 MG; Start 09/24/18 at 09:00 Diagnostic Test (Pha) (Accu-Chek) 1 ea 02 XX ; Start 09/24/18 at 02:00 Insulin Glargine (Lantus) 17 units DAILY@2000 SC Last administered on 09/23/18at 20:31; Admin Dose 17 UNITS; Start 09/23/18 at 20:00 Insulin Aspart (Novolog Insulin Pen) NOVOLOG *MILD* ALGORITHM WITH MEALS BEDTIME SC Last administered on 09/24/18at 10:32; Admin Dose 1 UNIT; Start 09/23/18 at 17:55 Miscellaneous Information 1 ea NOTE XX ; Start 09/23/18 at 12:30 Glucose (Glutose) 15 gm Q15M PRN PO DECREASED GLUCOSE; Start 09/23/18 at 12:30 Glucose (Glutose) 22.5 gm Q15M PRN PO DECREASED GLUCOSE; Start 09/23/18 at 12:30 Dextrose (D50w Syringe) 25 ml Q15M PRN IV DECREASED GLUCOSE; Start 09/23/18 at 12:30 Dextrose (D50w Syringe) 50 ml Q15M PRN IV DECREASED GLUCOSE; Start 09/23/18 at 12:30 Glucagon (Glucagen) 1 mg Q15M PRN IM DECREASED GLUCOSE; Start 09/23/18 at 12:30 Glucose (Glutose) 15 gm Q15M PRN BUCCAL DECREASED GLUCOSE; Start 09/23/18 at 12:30 Sodium Chloride 1,000 ml @ 80 mls/hr [id number] IV Last administered on 09/23/18at 20:23; Admin Dose 80 MLS/HR; Start 09/23/18 at 15:14 Insulin Aspart (Novolog Insulin Pen) 4 unit WITH MEALS SC ; Start 09/24/18 at 17:55; Status UNPHAN RICHMOND NP Sep 24, 2018 14:43
[2018-09-24 16:15] VITALS: BP 122/63; PULSE 99; RESP 18
[2018-09-24] MEDS ORDERED: GABA300C16 PO (16:22)
[2018-09-24] MEDS ORDERED: Acetaminophen PO (16:22)
[2018-09-24] MEDS ORDERED: ASPI-1044 PO (16:22)
[2018-09-24] MEDS ORDERED: OXYC-481 PO (16:22)
--- NOTE | 2018-09-24 16:24 | PN ---
Date/Time of Note Date/Time of Note DATE: 09/24/18 TIME: 16:18 Assessment/Plan Lines/Catheters IV Catheter Type (from Nrsg): Saline Lock Dawkins in Place (from Nrsg): Yes Assessment/Plan Chief Complaint/Hosp Course POD#1 s/p primary left ARIELA. Patient is doing very well today. He is tolerating his diet. Pain is well controlled. He did well with therapy and has cleared to therapy. -Post op H&H stable -PT/OT. Posterior Hip Precautions -Joints pain control protocol -DVT prophylaxis: SCD's, ASA 81 mg twice daily x6 weeks -Weight bearing status: as tolerated -Diet: ADAT -Dawkins: Discontinued -Discharge planning consult Planned Discharge Date: Today Discharge to home with home health and physical therapy Follow-up in clinic in 2 weeks. Subjective 24 Hr Interval Summary Patient doing well No acute events overnight Pain is well controlled Exam/Review of Systems Vital Signs Vitals Vital Signs Date Temp Pulse Resp B/P (MAP) Pulse Ox O2 O2 Flow FiO2 Time Delivery Rate 09/24/18 98.3 99 18 122/63 95 Room Air 16:15 (82) 99 09/23/18 2.0 20:25 Intake and Output 09/23/18 09/23/18 09/24/18 1414:59 22:59 06:59 IntakeIntake Total 2700 ml 2600.0 ml 1390 ml OutputOutput Total 550 ml 1200 ml 2300 ml BalanceBalance 2150 ml 1400.0 ml -910 ml Exam Free Text/Dictation Left lower extremity: Dressing: clean, dry, and intact, no erythema Sensation intact to light touch in a sural, saphenous, deep peroneal, superficial peroneal, medial and lateral plantar nerve distribution. Motor is intact, patient able to dorsiflex and plantarflex ankle and extend and flex great toe. Dorsalis Pedis pulse +2, Brisk capillary refill. Compartments are soft. Calves non-tender to palpation bilaterally. Results Result Diagram: 09/24/18 0442 09/24/18 0443 CIRO ROCHA MD Sep 24, 2018 16:24
--- NOTE | 2018-09-24 16:24 | DS ---
Date/Time of Note Date/Time of Note DATE: 09/24/18 TIME: 16:24 Discharge Summary Admission/Discharge Info Admit Date/Time Sep 23, 2018 at 05:38 Discharge Date/Time Patient Condition: Good Hospital Course POD#1 s/p primary left ARIELA. Patient is doing very well today. He is tolerating his diet. Pain is well controlled. He did well with therapy and has cleared to therapy. -Post op H&H stable -PT/OT. Posterior Hip Precautions -Joints pain control protocol -DVT prophylaxis: SCD's, ASA 81 mg twice daily x6 weeks -Weight bearing status: as tolerated -Diet: ADAT -Dawkins: Discontinued -Discharge planning consult Planned Discharge Date: Today Discharge to home with home health and physical therapy Follow-up in clinic in 2 weeks. Home Meds Reported Medications Losartan Potassium* (Losartan Potassium*) 100 Mg Tablet, 100 MG PO DAILY, TAB 09/23/18 Amlodipine Besylate* (Amlodipine Besylate*) 10 Mg Tablet, 10 MG PO DAILY, #30 TAB 09/23/18 Discontinued Reported Medications [Amlodipine] No Conflict Check, 10 MG PO DAILY 01/24/16 [Losartan] 100 No Conflict Check, 100 MG PO DAILY 01/24/16 Primary Care Provider [facility] Time spent on discharge: < 30 minutes Pending Labs Laboratory Tests Test 09/23/18 17:51 09/23/18 20:26 09/24/18 02:28 09/24/18 04:00 Bedside 216 211 175 Glucose mg/dL (70-220) mg/dL (70-220) mg/dL (70-220) Urine Color STRAW (YELLOW) Urine Clarity CLEAR (CLEAR) Urine pH 6.0 (5.0-9.0) Urine Specific 1.013 (1.003-1 [place] .030) Urine Ketones NEGATIVE mg/dL (NEGATIV E) Urine Nitrite NEGATIVE mg/dL (NEGATIV E) Urine NEGATIVE Bilirubin mg/dL (NEGATIV E) Urine NEGATIVE Urobilinogen mg/dL (NEGATIV E) Urine Leukocyte NEGATIVE [place]/u Esterase l Urine 0 /HPF (0-5) Microscopic RBC Urine 1 /HPF (0-5) Microscopic WBC Urine Bacteria FEW /HPF (NONE SEEN) Urine 1+ Hemoglobin mg/dL (NEGATIV E) Urine Glucose NEGATIVE mg/dL (NEGATIV E) Urine Total NEGATIVE Protein mg/dl (NEGATIV E) Test 09/24/18 04:42 09/24/18 04:43 09/24/18 07:15 09/24/18 08:23 White Blood 15.2 Count 10^3/ul (4.8-10 .8) Red Blood 3.47 Count 10^6/ul (4.70-6 .10) Hemoglobin 9.7 g/dl (14.0-18.0 ) Hematocrit 29.8 % (42.0-52.0) Mean 85.9 Corpuscular fl (82.0-101.0) Volume Mean 28.0 Corpuscular pg (29.0-33.0) Hemoglobin Mean 32.6 Corpuscular g/dl (32.0-37.0 Hemoglobin Conc ) ent Red Cell 13.4 Distribution % (11.5-14.5) Width Platelet Count 210 10^3/UL (140-41 5) Mean Platelet 9.4 Volume fl (7.4-10.4) Immature 0.700 Granulocytes % % (0.001-0.429) Neutrophils % 84.8 % (39.0-77.0) Lymphocytes % 6.0 % (15.0-51.0) Monocytes % 8.4 % (0.0-11.0) Eosinophils % 0.0 % (0.0-7.0) Basophils % 0.1 % (0.0-2.0) Nucleated Red 0.0 Blood Cells % /100WBC (0.0-0. 0) Immature 0.100 Granulocytes # 10^3/ul (0.0-0. 031) Neutrophils # 12.9 10^3/ul (1.6-7. 5) Lymphocytes # 0.9 10^3/ul (0.8-2. 9) Monocytes # 1.3 10^3/ul (0.3-0. 9) Eosinophils # 0.0 10^3/ul (0.0-0. 5) Basophils # 0.0 10^3/ul (0.0-0. 1) Nucleated Red 0.0 Blood Cells # 10^3/ul (0.0-0. 0) Prothrombin 14.1 Time Sec (11.9-14.9) Prothrombin 1.1 Time Ratio INR 1.08 International Normalized Rati o Hemoglobin A1c 6.3 % (0-5.9) Triglycerides 85 Level mg/dl (0-149) Cholesterol 147 Level mg/dl (100-200) LDL 99 mg/dl Cholesterol, Calculated HDL 31 Cholesterol mg/dl (28-71) Cholesterol/HDL 4.7 RATIO Ratio Sodium Level 140 mmol/L (135-14 4) Potassium 4.7 Level mmol/L (3.5-5. 1) Chloride Level 106 mmol/L (97-110 ) Carbon Dioxide 27 Level mmol/L (21-31) Anion Gap 7 (5-13) Blood Urea 13 Nitrogen mg/dl (7-20) Creatinine 0.99 mg/dl (0.61-1. 24) Est Glomerular > 60 Filtrat mL/min (>60) Rate mL/min Glucose Level 170 mg/dl (70-220) Calcium Level 8.9 mg/dl (8.4-10. 2) Lab Scanned REFERENCE Report LAB [id number] Bedside 175 Glucose mg/dL (70-220) Test 09/24/18 12:41 Bedside 135 Glucose mg/dL (70-220) CIRO ROCHA MD Sep 24, 2018 16:24
[2018-09-24] MEDS ORDERED: INSULIN ASPART [NOVOLOG] 3 ML PEN SC SCH (17:55)
[2018-09-24] MEDS: oxyCODONE 5 MG TAB PO PRN (18:11)
[2018-09-25] MEDS ORDERED: LOSARTAN 50 MG TAB PO SCH (09:00)
== END 2018-09-24 18:39 | disposition home health service (06) | DRG 470 ==
LOC: REC 05:38 → MS1 13:30
PROVIDERS: ADMIT Orthopaedic Surgery Adult Reconstructive Orthopaedic Surgery; ATTEND Orthopaedic Surgery Adult Reconstructive Orthopaedic Surgery
PROC: 0SRB04Z Replacement of Left Hip Joint with Ceramic on Polyethylene Synthetic Substitute, Open Approach (ICD-10-PCS; principal; 2018-09-23 07:30)
DX: M16.12 Unilateral primary osteoarthritis, left hip (principal); I10 Essential (primary) hypertension; E11.9 Type 2 diabetes mellitus without complications; E66.9 Obesity, unspecified; Z68.34 Body mass index [BMI] 34.0-34.9, adult
CPT/HCPCS: 72170; 73500; 73530; 80048; 80061; 81001; 82962; 83036; 85025; 85610; 86850; 86900; 86901; 87081; 87086; 88304; 88311; 97116; 97161; 97165; 97530; C1713; C1776; J0131; J0171; J0690; J1100; J1170; J1815; J1885; J2250; J2405; J2710; J3010; J7040; J7120